=== PATIENT | female | born 1955 | race Caucasian/White ===

== ENCOUNTER 2024-01-22 14:17 | Emergency (ER) | payer MEDICARE, OTHER, SELFPAY ==
[2024-01-22 14:20] VITALS: BP 161/77; PULSE 68; RESP 18; TEMP 36.6; O2SAT 99; BMI 25.0
--- NOTE | 2024-01-22 14:50 | ED.BACK ---
HPI - Back Pain/Injury <Nancy Chacon PA-C - Last Filed: 01/22/24 17:52> General Chief Complaint: Back Pain/Injury Stated Complaint: back pain Time Seen by Provider: 01/22/24 14:36 Source: patient and family History of Present Illness HPI Narrative: 68-year-old female presents to the ED with acute on chronic exacerbation of lower back pain. Patient states she has had chronic back pain which flares up on and off, however she has had a acute exacerbation over the last 2 weeks. Patient feels that her back is extremely stiff when she awakens in the morning, feels like her muscles have all locked up in the lower back. Pain is worse with moving. No numbness, tingling, weakness, saddle paresthesias. No fever, chills. No urinary hesitancy. No trauma. Patient is active, takes care of her 91-year-old mother, suspects that she might have strained her back from overdoing it. Related Data Previous Rx's Medication Instructions Recorded cyclobenzaprine 10 mg tablet 10 mg PO TID PRN muscle spasm 5 01/22/24 days #15 tabs Allergies Allergy/AdvReac Type Severity Reaction Status Date / Time Penicillins AdvReac Verified 01/22/24 14:20 Review of Systems <Nancy Chacon PA-C - Last Filed: 01/22/24 17:52> Constitutional Constitutional: Denies chills, Denies fatigue, Denies fever(s), Denies frequent falls, Denies lethargy and Denies weakness Eyes Eyes: Denies change in vision, Denies eye discharge, Denies irritation and Denies loss of vision ENT Ears, Nose, Mouth, and Throat: Denies change in voice, Denies dizziness, Denies neck pain, Denies sore throat and Denies throat swelling Cardiovascular Cardiovascular: Denies chest pain, Denies irregular heart rhythm, Denies lightheadedness, Denies palpitations, Denies dyspnea, Denies dyspnea on exertion and Denies orthopnea Respiratory Respiratory: Denies cough, Denies dyspnea, Denies dyspnea on exertion and Denies wheezing Gastrointestinal Gastrointestinal: Denies abdominal pain, Denies change in bowel habits, Denies diarrhea, Denies nausea and Denies vomiting Musculoskeletal Musculoskeletal: Reports back pain, Denies neck pain and Denies numbness Integumentary/Breasts Skin/Breast: Denies pruritus, Denies erythema, Denies rash and Denies wounds Neurologic Neurologic: Denies behavioral changes, Denies confusion, Denies dizziness, Denies frequent falls, Denies loss of vision, Denies numbness and Denies weakness Psychiatric Psychiatric: Denies anxiety, Denies behavioral changes, Denies confusion, Denies depression, Denies homicidal ideation and Denies suicidal ideation Endocrine Endocrine: Denies fatigue, Denies flushing and Denies palpitations Hematologic/Lymphatic Hematologic/Lymphatic: Denies easy bruising Allergic/Immunologic Allergic/Immunologic: Denies urticaria, Denies throat swelling and Denies wheezing Patient History <Nancy Chacon PA-C - Last Filed: 01/22/24 17:52> Social History Smoking Status: Never smoker Smoking Status: Never smoker alcohol intake frequency: 0-2 drinks per day Alcohol type: wine Substance Use Type: does not use Exam <Nancy Chacon PA-C - Last Filed: 01/22/24 17:52> Narrative Exam Narrative: Const General:?cooperative, healthy appearing and comfortable [facility] Head:?normal to inspection Ears:?hearing grossly normal bilaterally Nose:?external nose normal Face and sinus:?normal facial exam and sinuses nontender Mouth:?oral mucosae normal Throat:?posterior oropharynx normal Eyes General:?appearance normal, both eyes and all related structures Neck Neck:?normal visual inspection and no lymphadenopathy noted Resp Effort & Inspection:?normal respiratory effort Auscultation:?clear to auscultation bilaterally Cardio Rate:?regular rate Rhythm:?regular rhythm Musculoskeletal No midline tenderness to palpation. No paraspinal tenderness to palpation. Full range of motion. Strength and sensation is intact. Patient is neurovascularly intact. Neuro General:?patient alert, patient awake and patient oriented x3 Initial Vital Signs Initial Vital Signs: Vital Signs Temperature 97.8 F 01/22/24 14:20 Pulse Rate 68 01/22/24 14:20 Respiratory Rate 18 01/22/24 14:20 Blood Pressure 161/77 H 01/22/24 14:20 Pulse Oximetry 99 01/22/24 14:20 Oxygen Delivery Method Room Air 01/22/24 14:20 <Esperanza Dominguez DO - Last Filed: 01/23/24 19:48> Initial Vital Signs Initial Vital Signs: Vital Signs Temperature 97.8 F 01/22/24 14:20 Pulse Rate 68 01/22/24 14:20 Respiratory Rate 18 01/22/24 14:20 Blood Pressure 161/77 H 01/22/24 14:20 Pulse Oximetry 99 01/22/24 14:20 Oxygen Delivery Method Room Air 01/22/24 14:20 Course <Nancy Chacon PA-C - Last Filed: 01/22/24 17:52> Orders Ordered: Discontinued Medications Cyclobenzaprine HCl (Cyclobenzaprine 10 Mg Tablet) 10 mg PO NOW ONE Stop: 01/22/24 15:02 Last Admin: 01/22/24 15:10 Dose: 10 mg Documented By: RL Ketorolac Tromethamine (Ketorolac 30 Mg/Ml Vial) 30 mg IM NOW ONE Stop: 01/22/24 15:02 Last Admin: 01/22/24 15:10 Dose: 30 mg Documented By: RL Lidocaine (Lidocaine 5% Patch) 1 each TOP NOW ONE Stop: 01/22/24 15:03 Last Admin: 01/22/24 15:10 Dose: 1 each Documented By: RL Vital Signs Vital signs: Vital Signs - 8 hr 01/22/24 14:20 01/22/24 15:32 Temperature 97.8 F Pulse Rate 68 57 L Respiratory Rate 18 17 Blood Pressure 161/77 H 158/72 H Pulse Oximetry 99 96 Oxygen Delivery Method Room Air Room Air <Esperanza Dominguez DO - Last Filed: 01/23/24 19:48> Orders Ordered: Discontinued Medications Cyclobenzaprine HCl (Cyclobenzaprine 10 Mg Tablet) 10 mg PO NOW ONE Stop: 01/22/24 15:02 Last Admin: 01/22/24 15:10 Dose: 10 mg Documented By: RL Ketorolac Tromethamine (Ketorolac 30 Mg/Ml Vial) 30 mg IM NOW ONE Stop: 01/22/24 15:02 Last Admin: 01/22/24 15:10 Dose: 30 mg Documented By: RL Lidocaine (Lidocaine 5% Patch) 1 each TOP NOW ONE Stop: 01/22/24 15:03 Last Admin: 01/22/24 15:10 Dose: 1 each Documented By: RL Vital Signs Vital signs: Vital Signs - 8 hr 01/22/24 14:20 01/22/24 15:32 Temperature 97.8 F Pulse Rate 68 57 L Respiratory Rate 18 17 Blood Pressure 161/77 H 158/72 H Pulse Oximetry 99 96 Oxygen Delivery Method Room Air Room Air MDM - Back Pain/Injury <Nancy Chacon PA-C - Last Filed: 01/22/24 17:52> MDM Narrative Medical decision making narrative: 68-year-old female presents to the ED with acute on chronic exacerbation of lower back pain. No history of trauma, no tenderness to palpation, unlikely fracture/dislocation. No imaging indicated at this time. Patient's symptoms most consistent with a musculoskeletal sprain/strain of the lower back. Will give muscle relaxant, Toradol. Will reassess. Patient's symptoms improved with medications. Prescribed Flexeril. Recommend continuing ibuprofen, lidocaine patches, Tylenol, heat/ice. Recommend follow-up with PCP as soon as possible. ED return precautions discussed with patient. Patient verbalized understanding. Medical records reviewed: Yes Discharge Plan Departure Patient Disposition: Home Clinical Impression: Lower back pain Qualifiers: Chronicity: chronic Back pain laterality: unspecified Sciatica presence: without sciatica Qualified Code(s): M54.50 - Low back pain, unspecified Instructions: DI for Back Strain or Sprain Activity Restrictions/Additional Instructions: You were evaluated in the ED for an exacerbation of lower back pain. You were given an injection of Toradol, a muscle relaxant and a lidocaine patch was applied. It is recommended that you continue the muscle relaxant and also take 800 mg of ibuprofen every 8 hours with food. You may also add on 1000 mg of Tylenol every 8 hours. You may continue to use lidocaine patches which are available [id number]. Please follow-up with your PCP as soon as possible for further evaluation. Return to the ED if you have worsening symptoms, urinary difficulties, numbness, tingling, weakness. Prescriptions: New cyclobenzaprine 10 mg tablet 10 mg PO TID PRN (Reason: muscle spasm) 5 Days Qty: 15 0RF Stand Alone Forms: Patient Portal/API/Survey ED Sign-out <Esperanza Dominguez DO - Last Filed: 01/23/24 19:48> Cosign ED Attending Rosanaature Attestation: I was immediately available in the department for consultation.
[2024-01-22] MEDS: LIDOCAINE 5% PATCH 1 EACH TOP (15:10)
[2024-01-22] MEDS: KETOROLAC 30 MG/ML VIAL IM (15:10)
[2024-01-22] MEDS: CYCLOBENZAPRINE 10 MG TABLET PO (15:10)
[2024-01-22 15:32] VITALS: BP 158/72; PULSE 57; RESP 17; O2SAT 96
== END 2024-01-22 15:37 | disposition home or self-care (01) ==
PROVIDERS: Emergency Provider Student in an Organized Health Care Education/Training Program
DX: M54.50 Low back pain, unspecified (principal)
CPT/HCPCS: 96372; 99283; J1885

== ENCOUNTER → 2024-05-31 12:46 | Outpatient (CLI) | payer MEDICARE, OTHER, SELFPAY ==
--- NOTE | 2024-05-31 12:48 | DI.RAD.S_ITS ---
PROCEDURE: XR DEXA AXIAL SKELETON INDICATIONS: SCREENING COMPARISON: None. FINDINGS: Lumbar Spine: Bone mineral density 0.836 g/cm2, T score -1.9. Left Femoral Neck: Bone mineral density 0.614 g/cm2, T score -2.1. Left Hip: Bone mineral density 0.714 g/cm2, T score -1.9. Fracture Risk Calculation (when applicable): 10-year fracture risk of a major osteoporotic fracture 12 percent and of a hip fracture 2.5 percent. (T score greater or equal to -1.0 to: NORMAL) (T score from -1.1 to -2.4: OSTEOPENIA) (T score less than or equal to -2.5: OSTEOPOROSIS) IMPRESSION: Osteopenia--- recommend repeat DEXA in 2-3 years for reassessment. Follow-up guidelines as follows: Osteoporosis: Consider a repeat DEXA and Vertebral Fracture Assessment (VFA) exam in 2 years or sooner if medically necessary, to reassess this patient's status. Osteopenia: Consider a repeat DEXA in 2-3 years to reassess this patient's status, or if there is a new clinical indication. Normal: Consider a repeat DEXA in 5 years or sooner, or if there is a new clinical indication. All treatment decisions require clinical judgment and consideration of individual patient factors, including patient preferences, comorbidities, previous drug use, risk factors not captured in the FRAX model (e.g., frailty, falls, vitamin D deficiency, increased bone turnover, interval significant decline in bone density ) and possible under- or over-estimation of fracture risk by FRAX. In addition, the NOF Guide recommends that FDA-approved medical therapies be considered in postmenopausal women and men age >= 50 years with a: * Hip or vertebral (clinical or morphometric) fracture * T-score of <=-2.5 at the spine or hip * Ten-year fracture probability by FRAX of >= 3% for hip fracture or >=20% for major osteoporotic fracture. Dictated by: Bismark Danielson M.D. on 05/31/2024 at 19:15 Approved by: Bismark Danielson M.D. on 05/31/2024 at 19:16
== END ==
PROVIDERS: PCP Physician Assistant; Referring Provider Physician Assistant; Visit Provider Physician Assistant
DX: Z78.0 Asymptomatic menopausal state (principal); M85.89 Other specified disorders of bone density and structure, multiple sites
CPT/HCPCS: 77080

== ENCOUNTER → 2024-06-14 16:38 | Outpatient (CLI) | payer MEDICARE, OTHER, SELFPAY ==
--- NOTE | 2024-06-14 16:39 | DI.MG.S_ITS ---
MM screening mammo BI: 06/14/2024. BI-RADS: 0 CLINICAL: 68-year old female for bilateral screening mammogram. Tyrer-Cuzick lifetime risk of 5.0%. Current reported family history of breast cancer: mother. PRIOR EXAMS No prior examinations available. MAMMOGRAPHY TECHNIQUE: 2D and 3D (tomosynthesis) digital mammographic views obtained, with additional images as needed for full coverage. Current study was also evaluated with a Computer Aided Detection (CAD) system. DENSITY B. There are scattered areas of fibroglandular density. MAMMOGRAPHY FINDINGS Right: No suspicious mass, asymmetry, microcalcification, or other abnormality seen. Left: Upper Outer Quadrant, Middle depth, measuring 1.3 cm: Focal asymmetry needing additional imaging evaluation. IMPRESSION: Right * No evidence of malignancy. Left (Asymmetry): Upper Outer Quadrant, Middle depth, measuring 1.3 cm * Incomplete - focal asymmetry needing additional imaging evaluation. RECOMMENDATIONS Left: Upper Outer Quadrant, Middle depth * Further evaluation with diagnostic mammography and diagnostic ultrasound. Ultrasound to be performed only if needed. Bilateral * Previous exam(s) should be sought for comparison and, if obtained, an addendum issued. OVERALL ASSESSMENT CATEGORY BI-RADS-0: Incomplete - Need Additional Imaging Evaluation. ELECTRONICALLY SIGNED: Hilda Traore M.D. on 06/17/2024 at 09:48:43 AM PT Interpreting Station ID: [id number]
== END ==
PROVIDERS: PCP Physician Assistant; Referring Provider Physician Assistant; Visit Provider Physician Assistant
DX: Z12.31 Encounter for screening mammogram for malignant neoplasm of breast (principal); Z80.3 Family history of malignant neoplasm of breast
CPT/HCPCS: 77063; 77067

== ENCOUNTER → 2024-07-15 09:21 | Outpatient (CLI) | payer MEDICARE, OTHER, SELFPAY ==
--- NOTE | 2024-07-15 09:22 | DI.US.S_ITS ---
MM diagnostic mammo unilat LT, US breast LT limited: 07/15/2024 BI-RADS: 2 CLINICAL: 68-year old female for left diagnostic mammogram and left diagnostic breast ultrasound that is a recall from screening on 06/14/2024. Tyrer-Cuzick lifetime risk of 5.0%. Current reported family history of breast cancer: mother. PRIOR EXAMS Mammogram(s): 06/14/2024. [facility] 04/23, 01/2014, 01/2012, 05/2009. MAMMOGRAPHY TECHNIQUE: 2D and 3D (tomosynthesis) digital mammographic views obtained, with additional images as needed for full coverage. Current study was also evaluated with a Computer Aided Detection (CAD) system. ULTRASOUND TECHNIQUE Real-time albrecht scale and color doppler imaging of the area of clinical interest was performed with image documentation. Left targeted breast ultrasound of the area of clinical interest and the axilla was performed with image documentation. DENSITY Left: B. There are scattered areas of fibroglandular density. MAMMOGRAPHY FINDINGS Left: Upper Outer at 2:00, Middle depth: There is a focal asymmetry present that is unchanged in size and appearance. ULTRASOUND FINDINGS Left: Upper Outer at 2:00, 6.0 cm from nipple: Oval focus of fibroglandular tissue. Ill-defined border. Posterior thru transmission. No significant internal blood flow. No axillary adenopathy. Abnormality demonstrates long-term stability on mammogram. IMPRESSION: Left * No evidence of malignancy with benign findings. RECOMMENDATIONS Bilateral * Annual screening mammography. OVERALL ASSESSMENT CATEGORY BI-RADS-2: Benign. The [employer] recommends annual screening mammography beginning at age 40 for women with average risk of breast cancer. ELECTRONICALLY SIGNED: Dillon Oneill M.D. on 07/15/2024 at 11:17:09 AM PT Interpreting Station ID: [id number]
== END ==
LOC: MAMMO 09:22
PROVIDERS: PCP Physician Assistant; Referring Provider Physician Assistant; Visit Provider Physician Assistant
DX: R92.8 Other abnormal and inconclusive findings on diagnostic imaging of breast (principal); Z80.3 Family history of malignant neoplasm of breast
CPT/HCPCS: 76642; 77065; G0279